=== PATIENT | female | born 1955 | race Caucasian/White ===

== ENCOUNTER 2017-11-03 13:23 | Emergency (ER) | payer BC, OTHER ==
[2017-11-03 13:46] VITALS: BP 133/85
--- NOTE | 2017-11-03 13:57 | UC ---
Laceration HPI - HPI Summary HPI Summary: 62 y/o female presents to the urgent care c/o stepping w/ bear footed over small pieces of glass w/ her left foot about 2 weeks ago. Patient thinks she stepped on a piece of glass with her left foot two weeks ago. ~2cm localized erythema, pain with weight bearing, and swelling with ~1- 2mm punctured area at center. Has not attempted removal because she can not reach it but has done wound cleansing and dressing applications daily. - History Of Current Complaint Chief Complaint: UCForeignBody Stated Complaint: GLASS IN LT FT Time Seen by Provider: 11/03/17 13:47 Hx Obtained From: Patient Laceration Location: Foot - left mid foot puncture wound w/ a glass 2 weeks ago Mechanism Of Injury: Sharp Trauma Onset/Duration: Sudden Onset, Lasting Weeks - 2 weeks Severity: Mild Pain Intensity: 2 Pain Scale Used: 0-10 Numeric Aggravating Factors: Other: - touch and walking - Allergies/Home Medications Allergies/Adverse Reactions: Allergies Allergy/AdvReac Type Severity Reaction Status Date / Time lidocaine Allergy Headache Verified 11/03/17 13:41 Home Medications: Home Medications Cholecalciferol TAB* [Vitamin D TAB*] 1,000 unit PO DAILY 11/03/17 [History Confirmed 11/03/17] Levothyroxine TAB* [Synthroid 137 MCG TAB*] 137 mcg PO DAILY 11/03/17 [History Confirmed 11/03/17] Multivitamins/Minerals TAB* [Theragran/minerals TAB*] 1 tab PO DAILY 11/03/17 [ History Confirmed 11/03/17] Sod-3 Fatty Acids/Fish Oil [Fish Oil 1,000 mg Capsule] 1 each PO DAILY [History Confirmed 11/03/17] PARoxetine HCL TAB* [Paxil TAB*] 20 mg PO DAILY 11/03/17 [History Confirmed ] Simvastatin TAB(NF) [Zocor 20 MG (NF)] 20 mg PO DAILY 11/03/17 [History Confirmed 11/03/17] PMH/Surg Hx/FS Hx/Imm Hx Previously Healthy: Yes Endocrine History: Hypothyroidism, Dyslipidemia Other Endocrine History: Osteoarthritis Cardiovascular History: Hypertension Psychological History: Depression - Surgical History Surgical History: None - Family History Known Family History: Positive: Cardiac Disease Family History: Prostate cancer - Social History Occupation: Retired Lives: With Family Alcohol Use: None Substance Use Type: None Smoking Status (MU): Never Smoked Tobacco - Immunization History Most Recent Tetanus Shot: "Probably with in the last ten years." (~2008?) Review of Systems Constitutional: Negative Skin: Other - puncture wound w/ a glass in the left mid sole Eyes: Negative ENT: Negative Respiratory: Negative Cardiovascular: Negative Gastrointestinal: Negative Genitourinary: Negative Motor: Negative Neurovascular: Negative Musculoskeletal: Other: - left sole pain s/p puncture wound w/ a glass Neurological: Negative Psychological: Negative Is Patient Immunocompromised?: No All Other Systems Reviewed And Are Negative: Yes Physical Exam - Summary Physical Exam Summary: Vital Signs Reviewed: Yes General: well developed, well nourished female sitting in the examining table w/ o any apparent distress Eye Exam: Normal Eyes: Positive: Conjunctiva Clear - PERRLA, EOMI, fundi grossly normal ENT: Positive: Normal ENT inspection, Hearing grossly normal, Pharynx normal, TMs normal Neck: Positive: Supple, Nontender, No Lymphadenopathy Respiratory: Positive: Chest non-tender, Lungs clear, Normal breath sounds, No respiratory distress Cardiovascular: Positive: RRR, No Murmur, Pulses Normal, Brisk Capillary Refill Abdomen Description: Positive: Nontender, No Organomegaly, Soft. Negative: CVA Tenderness (R), CVA Tenderness (L) Bowel Sounds: Positive: Present Musculoskeletal: Positive: Strength Intact, ROM Intact, No Edema Neurological: Positive: Alert, Muscle Tone Normal Psychological Exam: Normal Skin: Positive: left foot at the mid sole w/ a discrete puncture wound about 0.3mm in size w/ mild swelling and erythema, and tender to palaption, no foreign body observed w/ the naked eye. FROM of left foot and ankle , sensation intact, capillary refill brisk, and pulses WNL. Triage Information Reviewed: Yes Vital Signs: Initial Vital Signs Temp 99.6 F 11/03/17 13:36 Pulse 86 11/03/17 13:36 Resp 20 11/03/17 13:36 BP 133/85 11/03/17 13:36 Pulse Ox 99 11/03/17 13:36 Laceration Course/Dx - Differential Dx - Laceration/Wound Differental Diagnoses: Abrasion, Cellulitis, Laceration, Puncture Wound, Tendon Laceration Provider Diagnoses: 1- Left foot puncture wound. 2-Left foot Foreing Body Discharge - Discharge Plan Condition: Stable Disposition: HOME Prescriptions: Bacitracin OINTMENT* 1 applic TOPICAL BID #1 tube Cephalexin CAP* [Keflex CAP*] 500 mg PO QID #28 cap Ibuprofen TAB* [Motrin TAB* 600 MG] 600 mg PO Q6H PRN #30 tab PRN Reason: Pain Patient Education Materials: Soft Tissue Foreign Body (ED) Referrals: Miesha Jones MD [Primary Care Provider] - 1 Week Nae Duenas MD [Medical Doctor] - 3 Days Additional Instructions: 1-Please take full course of antibiotic to avoid resistance. Apply Bacitracin oint around puncture wound as directed. Keep wound clean and dry 2- Keep wound clean and dry and avoid weight bearing w/ crutches. 3-Take Ibuprofen PO q6-8hrs prn for pain or swelling. 4- Please f/u w/ Surgeon Dr Duenas for removal of FB on your left foot - Billing Disposition and Condition Condition: STABLE Disposition: Home
[2017-11-03] MEDS ORDERED: Tetan/Diph/Pertus SYR(Tdap)* 0.5 ML SYR(BOOSTRIX) use SYR IM ONE (13:58)
--- NOTE | 2017-11-03 14:16 | RAD ---
HISTORY: left mid foot puncture wound w/ a glass r/o FB COMPARISONS: None VIEWS: 3, Frontal, lateral, and oblique views of the left foot FINDINGS: BONE DENSITY: Normal. BONES: There is no displaced fracture. JOINTS: There is no arthropathy. ALIGNMENT: There is no dislocation. SOFT TISSUES: Unremarkable. OTHER FINDINGS: There is a linear radiopaque foreign body in the soft tissues along the plantar aspect of the foot at the level of the calcaneocuboid articulation measuring 0.2 cm in length IMPRESSION: SMALL RADIOPAQUE FOREIGN BODY WITHIN THE PLANTAR SOFT TISSUES OF THE LEFT FOOT. NO ACUTE OSSEOUS INJURY. IF SYMPTOMS PERSIST, RECOMMEND REPEAT IMAGING.
== END 2017-11-03 14:58 | disposition home or self-care (01) ==
LOC: UCCORT 13:23
DX: S91.342A Puncture wound with foreign body, left foot, initial encounter (principal); W22.8XXA Striking against or struck by other objects, initial encounter; Y93.01 Activity, walking, marching and hiking; Y92.9 Unspecified place or not applicable; Z88.4 Allergy status to anesthetic agent; E03.9 Hypothyroidism, unspecified; I10 Essential (primary) hypertension; E78.5 Hyperlipidemia, unspecified; F32.9 Major depressive disorder, single episode, unspecified
CPT/HCPCS: 90715; 99212; G0463